=== PATIENT | male | born 1965 | race Caucasian/White ===

== ENCOUNTER 2016-10-19 20:13 | Emergency (ER) | payer OTHER ==
[~2016-10-19] VITALS: Ht 172.7 cm; Wt 98.1 kg
[~2016-10-19 20:13] MED LIST: METO50TA7 PO; ROSU20TA PO
[2016-10-19 20:22] VITALS: Ht 172.7 cm; Wt 98.1 kg
[2016-10-19] MEDS ORDERED: XYLOCAINE 1%/SOD BICARB 20 ML VIAL INFIL ONE (22:00)
[2016-10-19] MEDS ORDERED: DIPHTHERIA/TETANUS/PERTUSSIS 0.5 ML SYR/VIAL IM. ONE (22:00)
--- NOTE | 2016-10-19 23:48 | EMERGENCY ROOM VISIT NOTE ---
ED Visit Note First contact with patient: 21:40 Chief Complaint: LEFT Index Finger Laceration History of Present Illness: This patient is a 51-year-old male who presents to the Emergency Department this evening for evaluation of their LEFT index finger laceration. 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 He reports that there was a broken plate which cut his finger. They report a moderate amount of bleeding initially. They deny any numbness or tingling into the distal extremity. They report no decreased range of motion of the affected digit. They have tried nothing for the pain. Patient rates his current discomfort as an 8/10. Patient's Tetanus status is not currently up-to-date. Medications: No current medications. Allergies: Penicillins. PMH: No pertinent past medical history. SHx: Patient is a 51-year-old male who lives locally. ROS: All pertinent positive and negative review of systems are appropriately documented in the History of Present Illness. Physical Exam: VITAL SIGNS - Vital signs and nursing notes were reviewed. GENERAL - 51-year-old male appearing his stated age who is in no acute distress. Communicates well with provider and answers questions appropriately. SKIN - There is a 3.0 cm long laceration noted to the dorsal surface of the distal LEFT 2nd digit. The edges gape apart with traction. No foreign bodies appreciated. Upon further examination there are no deep structures including vessel, tendon, or bony structures appreciated. There is no active bleeding noted. MUSCULOSKELETAL - Laceration as described above. +5/5 strength appreciated of the affected digit. Full range of motion of the affected digit. NEUROLOGIC - Spinothalamic tract was found to be intact with ability to discriminate sharp versus dull sensation. No sensory defects of the dorsal column were appreciated utilizing light touch for evaluation. VASCULAR - Capillary refill was brisk. ED Course: Patient was seen and evaluated by myself. Costs and benefits of performing primary wound closure versus no repair were discussed with the patient who verbalizes understanding. Verbal consent was obtained prior to performing the procedure. 2.0 cc of 1% buffered lidocaine was used to anesthetize the laceration to the LEFT 2nd digit. The wound was cleansed and prepped in the typical sterile fashion utilizing normal saline and Betadine. The wound was sterilely draped. Once proper anesthetization was established, the wound was further examined and demonstrated no deep structures. The wound was copiously irrigated with normal saline and Betadine. The wound was closed using 7 simple, 5-0 nylon sutures with the wound edges being well approximated. Patient tolerated the procedure well. No complications were met. The wound was cleansed and dressed with a Bacitracin dressing. A metal splint was applied to the finger for comfort. Patient received their Adacel vaccination. Patient educated on worrisome symptoms for return visit to the Emergency Department. Patient discharged to home in good condition. Impression: LEFT 2nd Digit Laceration Discharge Instructions: You have received 7 sutures on your LEFT Index Finger. These sutures are NOT dissolvable and WILL need to be removed by a health care provider in 10-12 days. You can return to the Emergency Department or contact your Primary Care Provider to have the sutures removed. Please wear the splint for comfort until the sutures are removed. Proper wound care is essential for adequate wound healing and infection prevention. You can shower and clean the wound with soap and water. Do not scour over the wound, pat dry with a towel. Do not submerse the wound (i.e. bathe or dish wash) until the sutures have been removed. You can use an antibiotic ointment with a dressing over the wound for the next 3-4 days. After this time you may leave the wound dry and open to the air. If crust develops over the wound you can use a Q-tip to apply a 1:1 peroxide:water solution to clean the wound. Look for signs of infection of the wound including: increased pain, swelling, foul discharge, streaking, or increased temperature. If any of these are noticed you should return to the Emergency Department for further assessment and treatment. As with any laceration you may have received nerve damage to the surrounding tissues. This damage may or may not be permanent. You should keep the area covered with sunscreen for the first 6 months to 1 year when at risk for exposure to help minimize scarring. You can also use scar reducing creams or Vitamin E oil to help minimize scarring. For pain control, you can use the following wmva-nys-bksqubt medicines (if >12 yo): - Regular strength (325mg/tab) Tylenol (acetaminophen) 2 tabs every 4-6 hours as needed. Do not exceed 12 tablets in a 24 hour period. Avoid taking more than 4 grams (4000 mg) of Tylenol per day. This includes any other sources of acetaminophen you may take on a regular basis. - Regular strength (200 mg/tab) Advil (ibuprofen) 1-2 tabs every 4-6 hours as needed. Do not exceed a dose of 3200 mg per day. Return to the emergency department if your symptoms worsen despite treatment course outlined above. Current/Historical Medications Scheduled Metoprolol Succ (Toprol Xl) (Toprol-Xl), 50 MG PO DAILY Rosuvastatin Calcium (Crestor), 20 MG PO DAILY Allergies Coded Allergies: Penicillins (Unverified Allergy, Unknown, unknown, 10/19/16) Vital Signs Date Time Temp Pulse Resp B/P Pulse Ox O2 Delivery O2 Flow Rate FiO2 10/19/16 23:58 37.0 84 18 131/100 97 10/19/16 20:22 37.0 106 18 151/91 95 Room Air Medications Administered Medications (Trade) Dose Ordered Sig/Mirza Route Start Time Stop Time Status Last Admin Dose Admin Lidocaine HCl (Buffered Lidocaine 1% Inj) 20 ml ONE ONCE INFIL 10/19/16 22:00 10/19/16 22:01 DC 10/19/16 22:18 20 ML Diphtheria/ Pertussis/Tetanus Vacc (Adacel Inj) 0.5 ml ONCE ONCE IM. 10/19/16 22:00 10/19/16 22:01 DC 10/19/16 22:20 0.5 ML Departure Information Impression Primary Impression: Finger laceration Dispostion Home / Self-Care Condition GOOD Referrals No Doctor, Assigned (PCP) Patient Instructions ED Laceration Hand, [facility] Additional Instructions You have received 7 sutures on your LEFT Index Finger. These sutures are NOT dissolvable and WILL need to be removed by a health care provider in 10-12 days. You can return to the Emergency Department or contact your Primary Care Provider to have the sutures removed. Please wear the splint for comfort until the sutures are removed. Proper wound care is essential for adequate wound healing and infection prevention. You can shower and clean the wound with soap and water. Do not scour over the wound, pat dry with a towel. Do not submerse the wound (i.e. bathe or dish wash) until the sutures have been removed. You can use an antibiotic ointment with a dressing over the wound for the next 3-4 days. After this time you may leave the wound dry and open to the air. If crust develops over the wound you can use a Q-tip to apply a 1:1 peroxide:water solution to clean the wound. Look for signs of infection of the wound including: increased pain, swelling, foul discharge, streaking, or increased temperature. If any of these are noticed you should return to the Emergency Department for further assessment and treatment. As with any laceration you may have received nerve damage to the surrounding tissues. This damage may or may not be permanent. You should keep the area covered with sunscreen for the first 6 months to 1 year when at risk for exposure to help minimize scarring. You can also use scar reducing creams or Vitamin E oil to help minimize scarring. For pain control, you can use the following elri-crl-kdenzzp medicines (if >12 yo): - Regular strength (325mg/tab) Tylenol (acetaminophen) 2 tabs every 4-6 hours as needed. Do not exceed 12 tablets in a 24 hour period. Avoid taking more than 4 grams (4000 mg) of Tylenol per day. This includes any other sources of acetaminophen you may take on a regular basis. - Regular strength (200 mg/tab) Advil (ibuprofen) 1-2 tabs every 4-6 hours as needed. Do not exceed a dose of 3200 mg per day. Return to the emergency department if your symptoms worsen despite treatment course outlined above. Problem Qualifiers Primary Impression: Finger laceration Encounter type: initial encounter Qualified Codes: S61.219A - Laceration without foreign body of unspecified finger without damage to nail, initial encounter
[2016-10-19 23:58] VITALS: BP 131/100; PULSE 84; TEMP 37; O2SAT 97
== END 2016-10-19 23:59 | disposition home or self-care (01) ==
LOC: C.EDB 20:14 → C.EDD 23:59
DX: S61.211A Laceration without foreign body of left index finger without damage to nail, initial encounter (principal); W26.8XXA Contact with other sharp object(s), not elsewhere classified, initial encounter; Y93.G1 Activity, food preparation and clean up; Y99.0 Civilian activity done for income or pay; Z23 Encounter for immunization

== ENCOUNTER 2016-10-30 13:31 | Emergency (ER) | payer OTHER ==
[~2016-10-30] VITALS: Ht 172.7 cm; Wt 97.7 kg
[2016-10-30 13:32] VITALS: BP 144/92; PULSE 99; TEMP 36.9; O2SAT 94; Ht 172.7 cm; Wt 97.7 kg
--- NOTE | 2016-10-30 13:46 | EMERGENCY ROOM VISIT NOTE ---
ED Visit Note First contact with patient: 13:41 CHIEF COMPLAINT: Suture removal HISTORY OF PRESENT ILLNESS: This 51-year-old male patient returns to the ED today for removal of sutures that were placed 11 days ago. There has been no swelling, redness, or drainage from the wound. The patient feels like the laceration is healing well. REVIEW OF SYSTEMS: A 6 system review of systems was completed with positives and pertinent negatives listed in the HPI. PMH: Unchanged from previous visit. ALLERGIES: Penicillin PHYSICAL EXAM: Vital Signs: Reviewed Nurse's notes, vital signs stable. GENERAL : This is a 51-year-old male, in no acute distress. SKIN: There is a sutured wound on the left index finger with no signs of infection. There is no erythema , swelling, or tenderness. EMERGENCY DEPARTMENT COURSE: 7 sutures were removed without any difficulty and there was no separation of the wound edges. The patient was discharged home in good condition. DIAGNOSIS: Healing laceration and suture removal DISCHARGE INSTRUCTIONS AND TREATMENT: Wash any remaining crusts off of the wound today and resume your normal activities. Current/Historical Medications Scheduled Metoprolol Succ (Toprol Xl) (Toprol-Xl), 50 MG PO DAILY Rosuvastatin Calcium (Crestor), 20 MG PO DAILY Allergies Coded Allergies: Penicillins (Unverified Allergy, Unknown, unknown, 10/19/16) Vital Signs Date Time Temp Pulse Resp B/P Pulse Ox O2 Delivery O2 Flow Rate FiO2 10/30/16 13:32 36.9 99 18 144/92 94 Room Air Departure Information Impression Primary Impression: Encounter for removal of sutures Dispostion Home / Self-Care Condition GOOD Referrals No Doctor, Assigned (PCP) Patient Instructions [facility] [place] Additional Instructions Wash any remaining crusts off of the wound today and resume your normal activities.
== END 2016-10-30 13:51 | disposition home or self-care (01) ==
LOC: C.EDB 13:32 → C.EDD 13:51
DX: S61.219D Laceration without foreign body of unspecified finger without damage to nail, subsequent encounter (principal); X58.XXXD Exposure to other specified factors, subsequent encounter